=== PATIENT | male | born 1975 | race Two or more races ===

== ENCOUNTER 2025-02-02 06:16 | Emergency (ER) | payer MEDICAID ==
[~2025-02-02] VITALS: Ht 180.3 cm; Wt 113.6 kg
[2025-02-02 07:05] VITALS: TEMP 97.5
[2025-02-02 07:23] LABS: LEUKOCYTE ESTERASE ,URINE TRACE (Neg); NITRITES, URINE NEGATIVE (Neg); OCCULT BLOOD,URINE TRACE-INTACT (Neg)
[2025-02-02 07:24] LABS: UA COLLECTION TYPE CLN CATCH MIDSTREAM
[2025-02-02 07:33] LABS: MUCUS STRANDS MODERATE /LPF (Neg); SQUAMOUS EPITHELIAL CELL,UR NONE SEEN /LPF (FEW); WBC CLUMPS,URINE FEW /HPF (NEGATIVE)
[2025-02-02] MEDS ORDERED: sulfamethoxazole/trimethoprim DS (800/160mg) tablet PO ONE (07:55)
--- NOTE | 2025-02-02 08:00 | Physician Documentation ---
History of Present Illness General Chief Complaint: Back Pain Stated Complaint: BACK PAIN Time Seen by MD: 07:45 History of Present Illness Initial Comments The patient is a 49-year-old male with a history of sciatica who comes in with two days of right-sided low back pain. He denies urinary symptoms. 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 Medication Reconciliation Allergies: Coded Allergies: No Known Allergies (Unverified , 02/02/25) Review of Systems ROS Constitutional: Denies chills, fatigue, fever, weight gain or weight loss. HEENT: Denies hearing loss, sinus pressure or visual changes. Respiratory: Denies cough, shortness of breath or wheezing. Cardiovascular: Denies chest pain, pain while walking (claudication), edema or palpitations. Gastrointestinal: Denies abdominal pain, blood in stool, constipation, diarrhea, heartburn, loss of appetite, nausea or vomiting. Genitourinary: Denies painful urination (dysuria), excessive amount of urine (polyuria) or urinary frequency. Metabolic/Endocrine: Denies cold intolerance, heat intolerance, excessive thirst (polydipsia) or excessive hunger (polyphagia). Neurological: Denies dizziness, extremity numbness, extremity weakness, headaches, seizures or tremors. Psychiatric: Denies anxiety or depression. Integumentary: Denies breast discharge, breast lump, hives, mole change(s), rash or skin lesion. Musculoskeletal: Right-sided low back pain radiating into the buttock Hematologic: Denies easily bleeding, easily bruises, lymphedema or issues with blood clots. Immunologic: Denies food allergies or seasonal allergies. Physical Exam Physical Exam Vital Signs: Temperature: 97.5, Source: Oral, Heart Rate: 65, Respiratory Rate: 15, BP: 146/93, Pulse Oximetry: 98, Weight: 113.640 Oxygen Flow Rate: 0 Physical Exam Physical Exam Vitals and nursing note reviewed. Constitutional: General: Patient is awake, alert, oriented x 4 in no acute distress and well appearing. Speech is clear and lucid. Appearance: Normal appearance. Patient is not ill-appearing, toxic-appearing or diaphoretic. HENT: Head: Normocephalic and atraumatic. Mouth/Throat: Mouth: Mucous membranes are moist. Pharynx: Oropharynx is clear. Eyes: General: No scleral icterus. Extraocular Movements: Extraocular movements intact. Pupils: Pupils are equal, round, and reactive to light. Neck: Supple, no Kernig or Brudzinski sign. Cardiovascular: Rate and Rhythm: Normal rate and regular rhythm. Heart sounds: No murmur heard. Pulmonary: Effort: No respiratory distress. Breath sounds: No wheezing, rhonchi or rales. Abdominal: General: There is no distension. Palpations: There is no fluid wave, hepatomegaly or mass. Tenderness: There is no abdominal tenderness. There is no guarding. Musculoskeletal: General: Positive straight leg raising on right Skin: Coloration: Skin is not jaundiced. Findings: No erythema or rash. Neurological: Mental Status: Patient is alert. Progress Results/Orders Results/Orders Orders - ANN MARIE HUNG MD Cult Urine + [address] (02/02/25 07:34) Completed Orders - ANN MARIE HUNG MD Ua W/Microscopic, Cult If Ind (02/02/25 07:05) Vital Signs 02/02/25 02/02/25 06:23 07:05 Temp 97.5 97.5 Pulse 73 65 Resp 18 15 B/P (MAP) 139/96 146/93 (110) Pulse Ox 99 98 O2 Flow Rate 0 0 Laboratory Tests Test 02/02/25 07:05 Urine Specimen Description Cln catch midstream Urine Color Yellow Urine Clarity Slightly cloudy Urine pH 6.0 Urine Specific [place] >=1.030 Urine Protein Trace Urine Glucose (UA) Negative Urine Ketones Negative Urine Occult Blood Trace-intact Urine Nitrite Negative Urine Bilirubin Negative Urine Urobilinogen 0.2 Urine Leukocyte Esterase Trace H Urine RBC 0-2 Urine WBC Tntc H Urine WBC Clumps Few Urine Squamous Epithelial Cells None seen Urine Transitional Epithelial Cells Few Urine Bacteria 1+ Urine Mucus Moderate Urine Culture Indicated Indicated Volume Urine Centrifuged 10 ml Urine Comment Medical Decision Making Findings I believe this patient does have right lower musculoskeletal back pain. However, he also has an infected urine. I am going to treat him for both conditions and have him follow-up with his PCP (he reports that he sees a physician in [place]). Departure Disposition: HOME / SELF CARE / HOMELESS Impression: Primary Impression: Strain of lumbar region Additional Impression: UTI (urinary tract infection) Condition: Stable Additional Instructions: It is important to see your doctor or primary care provider. Emergency care may be incomplete without proper follow-up. Symptoms sometimes change or new symptoms might arise after you leave the emergency department. It is important that you call your doctor if you become worse in any way, or return to the emergency department. You are strongly urged to follow-up with your physician to assure complete and thorough care. Please call your doctor's office today, and informed them that you were seen in the emergency department, and that you need to be seen immediately for close follow-up. If you do not have a primary care doctor we encourage you to proactively seek a local physician for close follow-up. Consider local clinics, [facility], or local [facility]. Prior to discharge we spoke at length concerning symptoms that would merit reevaluation, but please return to the emergency de partment for any symptoms that are concerning to you, and we will be happy to continue your evaluation and treatment. Please note you can always return to the emergency department if you are having difficulty coordinating close follow-up. If medications were prescribed, you should fill them at your local pharmacy immediately and take only as prescribed. Bring your new medications to your doctors follow-up visit to discuss any changes that would be necessary. Please check [employer] for any results you did not receive in the Emergency Department: often we are unable to get all your tests back before you leave, and these tests need to be reviewed by your PCP and yourself. You can also call Medical Records if you are unable to access the internet to see [employer]. Return to the emergency department immediately for worsening chest pain, difficulty breathing, sweating, or other concerning emergent symptoms. Referrals: NO PRIMARY CARE PROVIDER (PCP) Prescriptions Cyclobenzaprine* (Cyclobenzaprine*) 10 Mg Tablet 1 TAB PO Q8H for muscle spasms for 10 Days, #30 TAB 0 Refills Prov: ANN MARIE HUNG MD 02/02/25 Naproxen (Naproxen) 500 Mg Tablet 1 TAB PO Q12H, #20 TAB Prov: ANN MARIE HUNG MD 02/02/25 Ciprofloxacin HCl (Ciprofloxacin HCl) 500 Mg Tab 1 TAB PO BID, #28 TAB Prov: ANN MARIE HUNG MD 02/02/25 Signature Scribe Signature: . Attestation: . ANN MARIE HUNG MD Feb 02, 2025 08:00
[2025-02-02] MEDS ORDERED: CYCL-1 PO (08:01)
[2025-02-02] MEDS ORDERED: NAPR-56 PO (08:01)
[2025-02-02] MEDS ORDERED: CIPR-458 PO (08:01)
[2025-02-02] MEDS: ciprofloxacin 250mg tablet PO ONE (08:03)
[2025-02-02] MEDS: ketorolac trometh 30MG/ML vial 30 MG/ML VIAL IM ONE (08:04)
[2025-02-02 08:10] VITALS: BP 144/99; PULSE 63; RESP 15; O2SAT 98
== END 2025-02-02 08:12 | disposition home or self-care (01) ==
LOC: ER 06:17
DX: S39.012A Strain of muscle, fascia and tendon of lower back, initial encounter (principal); N39.0 Urinary tract infection, site not specified; X58.XXXA Exposure to other specified factors, initial encounter; Y93.89 Activity, other specified; Y92.89 Other specified places as the place of occurrence of the external cause; Y99.8 Other external cause status
CPT/HCPCS: 81001; 87088; 96372; 99283; J1885